=== PATIENT | female | born 1955 | race Two or more races ===

== ENCOUNTER 2017-06-08 23:18 | Inpatient (IN) | payer MEDICAID ==
[~2017-06-08] VITALS: Ht 167.6 cm; Wt 110.7 kg
[2017-06-08 23:54] LABS: Basophils # (auto) 0 uL; Eosinophils # (auto) 0 uL; Monocytes # (auto) 0.2 uL
[2017-06-08 23:57] LABS: Basophils % (auto) 0.5 % (0.0-2.0); Eosinophils % (auto) 0.5 % (0.0-7.0); Hematocrit 29.8 % (36.0-46.0); Hemoglobin 9.8 g/dL (12.2-16.2); Lymphocytes # (auto) 0.5 uL; Lymphocytes % (auto) 12.9 % (10.0-50.0); Mean Corpuscular Hemoglobin 26.3 pg (28.0-32.0); Mean Corpuscular Volume 79.8 fL (80.0-100.0); Monocytes % (auto) 5.3 % (0.0-12.0); Neutrophils # (auto) 3.1 uL; Neutrophils % (auto) 80.8 % (37.0-80.0); Nucleated Red Blood Cells % 0.1 %; Platelet Count (auto) 94 10^3/uL (140-450); Red Blood Cells 3.73 10^6/uL (4.0-5.20); Red Cell Distribution Width 18.2 % (11.8-14.3); White Blood Cell 3.9 10^3/uL (4.4-10.8)
[2017-06-09 00:09] LABS: INR 1.1 (0.9-1.15); Partial Thromboplastin Time 29.1 sec (22.64-33.71)
[2017-06-09 00:13] LABS: Alanine Aminotransferase 39 U/L (13-56); Albumin 2.8 g/dL (3.4-5.0); Alkaline Phosphatase 156 U/L (45-117); Amylase 49 U/L (25-115); Anion Gap 8 (5-15); Aspartate Aminotransferase 58 U/L (15-37); BUN/Creatinine Ratio 21.2; Bilirubin, Total 1.1 mg/dL (0.2-1.0); Blood Urea Nitrogen 14 mg/dL (7-18); Calcium 7.7 mg/dL (8.5-10.1); Carbon Dioxide 24 mmol/L (21-32); Chloride 109 mmol/L (98-107); GFR African American 116 mL/min; GFR Non-African American 96 mL/min; Glucose 140 mg/dL (74-106); Lipase 292 U/L (73-393); Potassium 3.7 mmol/L (3.5-5.1); Sodium 141 mmol/L (136-145); Total Protein 6.9 g/dL (6.4-8.2)
[2017-06-09] MEDS ORDERED: ONDANSETRON HCL 4 MG/2 ML VIAL IV ONE (01:30)
[2017-06-09] MEDS ORDERED: MORPHINE SULFATE 4 MG/ML SYR/VIAL IV ONE (01:30)
[2017-06-09] MEDS ORDERED: ACETAMINOPHEN 500 MG TAB PO PRN (06:00)
[2017-06-09 06:29] LABS: Basophils # (auto) 0 uL; Eosinophils # (auto) 0 uL; Lymphocytes # (auto) 0.6 uL; Mean Corpuscular Volume 80.9 fL (80.0-100.0); Monocytes # (auto) 0.3 uL; Neutrophils # (auto) 3.1 uL; Nucleated Red Blood Cells % 0.1 %; Platelet Count (auto) 89 10^3/uL (140-450); Red Blood Cells 3.86 10^6/uL (4.0-5.20)
[2017-06-09 06:31] LABS: Basophils % (auto) 0.2 % (0.0-2.0); Eosinophils % (auto) 0.4 % (0.0-7.0); Hematocrit 31.2 % (36.0-46.0); Lymphocytes % (auto) 15.6 % (10.0-50.0); Mean Corpuscular Hgb Conc. 32.1 g/dL (32.0-36.0); Monocytes % (auto) 8.5 % (0.0-12.0); Neutrophils % (auto) 75.3 % (37.0-80.0); Red Cell Distribution Width 17.9 % (11.8-14.3); White Blood Cell 4.1 10^3/uL (4.4-10.8)
[2017-06-09 06:40] LABS: Albumin 2.8 g/dL (3.4-5.0); BUN/Creatinine Ratio 22.6; Bilirubin, Total 1.1 mg/dL (0.2-1.0); Calcium 7.6 mg/dL (8.5-10.1); Potassium 3.7 mmol/L (3.5-5.1); Total Protein 6.9 g/dL (6.4-8.2)
[2017-06-09] MEDS: SODIUM CHLORIDE 0.9% 1,000 ML IV SCH ×3 (07:00→22:30)
[2017-06-09 08:30] VITALS: BP 140/59
[2017-06-09] MEDS ORDERED: LOSA50TA6 PO (09:57)
[2017-06-09] MEDS ORDERED: ALPR0.5T7 PO (09:57)
[2017-06-09] MEDS ORDERED: PHYT100T PO (10:00)
[2017-06-09] MEDS: cefTRIAXone 1GM/10ml IVPUSH 10 ML IV SCH (10:39)
[2017-06-09] MEDS: MORPHINE SULFATE 4 MG/ML SYR/VIAL IV PRN ×2 (11:15→17:12)
[2017-06-09 12:52] LABS: Urine Bacteria NONE SEEN /hpf (None Seen); Urine Blood Negative /uL (Negative); Urine Specific Gravity 1.014 (1.001-1.035); Urine WBC 8 /hpf (0 - 5)
[2017-06-09 13:06] LABS: Hepatitis B Surface Antibody Negative
[2017-06-09] MEDS: metroNIDAZOLE 500MG/100ML 100 ML IV SCH ×2 (13:15→22:05)
[2017-06-09 13:17] LABS: Hepatitis B Surface Antigen Negative (Negative)
[2017-06-09 13:45] LABS: Hepatitis A Total Antibody Positive; Hepatitis C Antibody Negative (Negative)
[2017-06-09 13:46] LABS: Hepatitis B Core Total AB Negative
[2017-06-09 22:00] VITALS: BP 139/64
[2017-06-10] MEDS: MORPHINE SULFATE 4 MG/ML SYR/VIAL IV PRN (02:14)
[2017-06-10 05:00] VITALS: BP 157/73
[2017-06-10] MEDS: metroNIDAZOLE 500MG/100ML 100 ML IV SCH ×3 (05:33→23:18)
[2017-06-10 06:35] LABS: Basophils # (auto) 0 uL; Hematocrit 29.7 % (36.0-46.0); Lymphocytes # (auto) 0.6 uL; Neutrophils # (auto) 3.1 uL; White Blood Cell 4.3 10^3/uL (4.4-10.8)
[2017-06-10 06:38] LABS: Eosinophils # (auto) 0.1 uL; Eosinophils % (auto) 3.1 % (0.0-7.0); Hemoglobin 9.7 g/dL (12.2-16.2); Lymphocytes % (auto) 13.4 % (10.0-50.0); Mean Corpuscular Hemoglobin 26.2 pg (28.0-32.0); Mean Corpuscular Hgb Conc. 32.7 g/dL (32.0-36.0); Monocytes # (auto) 0.4 uL; Neutrophils % (auto) 72.5 % (37.0-80.0); Nucleated Red Blood Cells % 0.4 %; Platelet Count (auto) 89 10^3/uL (140-450); Red Blood Cells 3.71 10^6/uL (4.0-5.20); Red Cell Distribution Width 17.9 % (11.8-14.3)
[2017-06-10] MEDS ORDERED: BUPIVACAINE 0.25% INJ 50ML VIAL ONE (06:48)
[2017-06-10] MEDS ORDERED: POVIDONE IODINE 10 % TOPICAL OINT 30GM TOP ONE (06:48)
[2017-06-10] MEDS ORDERED: BUPIVACAINE W/ EPINEPH 0.25% INJ 50ML MDV ONE (06:48)
[2017-06-10] MEDS ORDERED: LIDOCAINE 1% HCL (LOCAL ANESTH.) INJ 20ML MDV ONE (06:48)
[2017-06-10 06:50] LABS: BUN/Creatinine Ratio 17.3; Calcium 7.6 mg/dL (8.5-10.1); Magnesium 2.2 mg/dL (1.6-2.6); Potassium 3.5 mmol/L (3.5-5.1)
[2017-06-10] MEDS: SODIUM CHLORIDE 0.9% 1,000 ML IV SCH ×3 (07:00→22:30)
[2017-06-10] MEDS ORDERED: SODIUM CHLORIDE LOCK 10 ML ONE (07:02)
[2017-06-10] MEDS ORDERED: ONDANSETRON HCL 4 MG/2 ML VIAL ONE (07:02)
[2017-06-10] MEDS ORDERED: fentaNYL CITRATE 100 MCG/2 ML VL ONE ×2 (07:02→08:02)
[2017-06-10] MEDS ORDERED: MEPERIDINE HCL (50 MG/ML) 1 ML VIAL ONE (07:02)
[2017-06-10] MEDS ORDERED: ROCURONIUM 10MG/ML 10ML VIAL IV ONE (07:02)
[2017-06-10] MEDS ORDERED: MIDAZOLAM HCL 1MG/1ML-2 ML VIAL ONE (07:02)
[2017-06-10] MEDS ORDERED: PROPOFOL 10 MG/ML 20 ML IV ONE (07:02)
[2017-06-10] MEDS ORDERED: ceFAZolin 1GM/50ML 50 ML IV ONE (07:17)
[2017-06-10] MEDS ORDERED: GLYCOPYRROLATE 0.2 MG/ML 1ML VIAL ONE (08:11)
[2017-06-10] MEDS ORDERED: NEOSTIGMINE 1 MG/ML INJ (10mg/10ML VIAL) ONE (08:11)
[2017-06-10] MEDS ORDERED: METOCLOPRAMIDE HCL 5MG/ml INJ 2ml VIAL IV ONE (08:45)
[2017-06-10] MEDS ORDERED: HYDROmorphone HCL 2 MG/ML VL IV PRN (08:45)
[2017-06-10] MEDS ORDERED: PROMETHAZINE HCL 25 MG/ML 1ML IM ONE (09:10)
[2017-06-10] MEDS ORDERED: HYDROmorphone HCL 2 MG/ML VL ONE (09:11)
[2017-06-10] MEDS ORDERED: PROMETHAZINE HCL 25 MG/ML 1ML ONE (09:14)
[2017-06-10] MEDS ORDERED: PROMETHAZINE HCL 25 MG/ML 1ML IV PRN (09:15)
[2017-06-10] MEDS: cefTRIAXone 1GM/10ml IVPUSH 10 ML IV SCH (10:42)
[2017-06-10 12:00] VITALS: BP 178/91
[2017-06-10 15:05] LABS: Ferritin 24.9 ng/mL (10-322)
[2017-06-10 17:34] VITALS: BP 142/65
[2017-06-10 22:00] VITALS: BP 149/66
[2017-06-11] MEDS: HYDROcodone-ACET 5/325MG TAB PO PRN (04:44)
[2017-06-11 05:00] VITALS: BP 160/80
[2017-06-11] MEDS: metroNIDAZOLE 500MG/100ML 100 ML IV SCH ×3 (05:02→23:15)
[2017-06-11 07:00] VITALS: BP 141/68
[2017-06-11 07:04] LABS: Basophils # (auto) 0 uL; Eosinophils # (auto) 0 uL; Hemoglobin 9.7 g/dL (12.2-16.2); Lymphocytes # (auto) 0.5 uL; Neutrophils # (auto) 6.5 uL
[2017-06-11 07:06] LABS: Basophils % (auto) 0.1 % (0.0-2.0); Eosinophils % (auto) 0.4 % (0.0-7.0); Hematocrit 29.9 % (36.0-46.0); Lymphocytes % (auto) 6.6 % (10.0-50.0); Mean Corpuscular Hemoglobin 25.6 pg (28.0-32.0); Mean Corpuscular Hgb Conc. 32.3 g/dL (32.0-36.0); Mean Corpuscular Volume 79.4 fL (80.0-100.0); Monocytes # (auto) 1.2 uL; Neutrophils % (auto) 78.9 % (37.0-80.0); Nucleated Red Blood Cells % 0.2 %; Platelet Count (auto) 101 10^3/uL (140-450); Red Blood Cells 3.76 10^6/uL (4.0-5.20); Red Cell Distribution Width 18.3 % (11.8-14.3); White Blood Cell 8.3 10^3/uL (4.4-10.8)
[2017-06-11 07:20] LABS: BUN/Creatinine Ratio 21.2; Calcium 7.7 mg/dL (8.5-10.1); Magnesium 1.9 mg/dL (1.6-2.6); Potassium 3.4 mmol/L (3.5-5.1)
[2017-06-11] MEDS: SODIUM CHLORIDE 0.9% 1,000 ML IV SCH ×3 (09:51→23:14)
[2017-06-11] MEDS: cefTRIAXone 1GM/10ml IVPUSH 10 ML IV SCH (10:10)
[2017-06-11 12:11] VITALS: BP 141/68
[2017-06-11 16:36] VITALS: BP 147/85
[2017-06-11 22:00] VITALS: BP 145/81
[2017-06-12 05:00] VITALS: BP 153/77
[2017-06-12] MEDS: metroNIDAZOLE 500MG/100ML 100 ML IV SCH ×3 (05:26→21:42)
[2017-06-12 06:28] LABS: Basophils # (auto) 0 uL; Eosinophils # (auto) 0.2 uL; Hemoglobin 9.5 g/dL (12.2-16.2); Lymphocytes # (auto) 0.7 uL; Neutrophils # (auto) 4.4 uL; Nucleated Red Blood Cells % 0.1 %
[2017-06-12 06:30] LABS: Basophils % (auto) 0.3 % (0.0-2.0); Eosinophils % (auto) 3.1 % (0.0-7.0); Hematocrit 28.6 % (36.0-46.0); Lymphocytes % (auto) 11.9 % (10.0-50.0); Mean Corpuscular Hgb Conc. 33.3 g/dL (32.0-36.0); Mean Corpuscular Volume 78.1 fL (80.0-100.0); Monocytes # (auto) 0.9 uL; Monocytes % (auto) 14.3 % (0.0-12.0); Neutrophils % (auto) 70.4 % (37.0-80.0); Platelet Count (auto) 96 10^3/uL (140-450); Red Blood Cells 3.67 10^6/uL (4.0-5.20); Red Cell Distribution Width 17.9 % (11.8-14.3); White Blood Cell 6.2 10^3/uL (4.4-10.8)
[2017-06-12] MEDS: SODIUM CHLORIDE 0.9% 1,000 ML IV SCH ×3 (06:30→22:30)
[2017-06-12 06:41] LABS: Calcium 7.9 mg/dL (8.5-10.1); Potassium 3.3 mmol/L (3.5-5.1)
[2017-06-12 06:44] LABS: BUN/Creatinine Ratio 33.3
[2017-06-12 09:30] VITALS: BP 160/82
[2017-06-12] MEDS: cefTRIAXone 1GM/10ml IVPUSH 10 ML IV SCH (09:42)
[2017-06-12] MEDS ORDERED: POTASSIUM CHL 10% (20 MEQ/15ML) 15ml ORAL SOLN PO ONE (12:45)
[2017-06-12 13:00] VITALS: BP 158/78
[2017-06-12] MEDS ORDERED: hydrALAZINE HCL 20 MG/ML VL IV PRN (16:00)
[2017-06-12] MEDS ORDERED: LOSARTAN POTASSIUM 50 MG TAB PO ONE (16:15)
[2017-06-12 16:53] VITALS: BP 176/83
[2017-06-12 23:02] VITALS: BP 154/74
[2017-06-13] MEDS: HYDROcodone-ACET 5/325MG TAB PO PRN ×2 (00:18→20:35)
[2017-06-13] MEDS: MORPHINE SULFATE 4 MG/ML SYR/VIAL IV PRN (03:57)
[2017-06-13 05:00] VITALS: BP 135/71
[2017-06-13] MEDS: metroNIDAZOLE 500MG/100ML 100 ML IV SCH (05:33)
[2017-06-13] MEDS: SODIUM CHLORIDE 0.9% 1,000 ML IV SCH (06:30)
[2017-06-13 07:30] LABS: Basophils # (auto) 0 uL; Eosinophils # (auto) 0.4 uL; Hemoglobin 8.5 g/dL (12.2-16.2); Monocytes # (auto) 0.5 uL; Neutrophils # (auto) 2.9 uL; Platelet Count (auto) 90 10^3/uL (140-450)
[2017-06-13 07:33] LABS: Basophils % (auto) 0.3 % (0.0-2.0); Eosinophils % (auto) 8.2 % (0.0-7.0); Hematocrit 26.4 % (36.0-46.0); Lymphocytes # (auto) 0.6 uL; Lymphocytes % (auto) 14.4 % (10.0-50.0); Mean Corpuscular Hemoglobin 25.9 pg (28.0-32.0); Mean Corpuscular Hgb Conc. 32.3 g/dL (32.0-36.0); Monocytes % (auto) 11.6 % (0.0-12.0); Neutrophils % (auto) 65.5 % (37.0-80.0); Nucleated Red Blood Cells % 0.7 %; Red Cell Distribution Width 18.4 % (11.8-14.3); White Blood Cell 4.4 10^3/uL (4.4-10.8)
[2017-06-13 07:39] LABS: BUN/Creatinine Ratio 27.9; Calcium 7.3 mg/dL (8.5-10.1); Potassium 3.8 mmol/L (3.5-5.1)
[2017-06-13] MEDS: cefTRIAXone 1GM/10ml IVPUSH 10 ML IV SCH (09:14)
[2017-06-13 09:30] VITALS: BP 123/65
[2017-06-13] MEDS: LOSARTAN POTASSIUM 50 MG TAB PO SCH (09:57)
[2017-06-13 13:00] VITALS: BP 123/64
[2017-06-13 16:20] VITALS: BP 143/72
[2017-06-13 22:00] VITALS: BP 139/87
[2017-06-14 05:06] VITALS: BP 126/62
[2017-06-14 06:31] LABS: Basophils # (auto) 0 uL; Basophils % (auto) 0.6 % (0.0-2.0); Eosinophils # (auto) 0.3 uL; Eosinophils % (auto) 8.9 % (0.0-7.0); Hematocrit 27.2 % (36.0-46.0); Lymphocytes # (auto) 0.6 uL; Lymphocytes % (auto) 19.3 % (10.0-50.0); Mean Corpuscular Hemoglobin 26.5 pg (28.0-32.0); Mean Corpuscular Hgb Conc. 33.2 g/dL (32.0-36.0); Mean Corpuscular Volume 79.9 fL (80.0-100.0); Monocytes # (auto) 0.4 uL; Monocytes % (auto) 13.4 % (0.0-12.0); Neutrophils # (auto) 1.9 uL; Neutrophils % (auto) 57.8 % (37.0-80.0); Nucleated Red Blood Cells % 0.4 %; Platelet Count (auto) 94 10^3/uL (140-450); Red Blood Cells 3.41 10^6/uL (4.0-5.20); Red Cell Distribution Width 18.1 % (11.8-14.3); White Blood Cell 3.3 10^3/uL (4.4-10.8)
[2017-06-14 06:52] LABS: Calcium 7.3 mg/dL (8.5-10.1); Magnesium 1.9 mg/dL (1.6-2.6); Potassium 3.8 mmol/L (3.5-5.1)
[2017-06-14 06:54] LABS: BUN/Creatinine Ratio 29.2
[2017-06-14 08:24] VITALS: BP 128/71
[2017-06-14] MEDS: cefTRIAXone 1GM/10ml IVPUSH 10 ML IV SCH (09:04)
[2017-06-14] MEDS: LOSARTAN POTASSIUM 50 MG TAB PO SCH (09:05)
[2017-06-14 11:50] VITALS: BP 128/66
[2017-06-14] MEDS ORDERED: LOSA50TA6 PO (12:46)
[2017-06-14 13:14] VITALS: BP 118/67
== END 2017-06-14 15:50 | disposition home or self-care (01) | DRG 227 ==
LOC: ER 23:18 → TELE 23:19 → OVERFLOW 06-09 06:11 → CENTRAL 06-09 08:25
PROVIDERS: ADMIT Nurse Practitioner Family; ATTEND Internal Medicine
PROC: 0WQF0ZZ Repair Abdominal Wall, Open Approach (ICD-10-PCS; principal; 2017-06-10 07:22)
DX: K42.0 Umbilical hernia with obstruction, without gangrene (principal); D69.6 Thrombocytopenia, unspecified; E44.1 Mild protein-calorie malnutrition; I10 Essential (primary) hypertension; D64.9 Anemia, unspecified; E11.9 Type 2 diabetes mellitus without complications; R16.1 Splenomegaly, not elsewhere classified; E66.9 Obesity, unspecified; K43.2 Incisional hernia without obstruction or gangrene; M51.36 Other intervertebral disc degeneration, lumbar region; Z68.39 Body mass index [BMI] 39.0-39.9, adult
CPT/HCPCS: 36415; 71045; 74176; 80048; 80053; 81001; 82150; 82390; 82607; 82728; 83516; 83690; 83735; 84436; 84443; 84484; 85025; 85610; 85652; 85730; 86038; 86225; 86235; 86304; 86431; 86703; 86704; 86706; 86708; 86803; 86850; 86900; 86901; 87081; 87340; 88302; 93005; 96365; 96375; J0690; J2001; J2250; J2405; J2704; J3490